=== PATIENT | male | born 1940 | race Caucasian/White ===

== ENCOUNTER 2016-08-08 15:03 | Emergency (ER) | payer OTHER, BC ==
[~2016-08-08 15:03] MED LIST: ATEN50 PO; GLUCOPHXR PO; L20 PO; LEVOTHYROXIN100 MCG PO; LIPITOR20 PO
== END 2016-08-08 17:00 | disposition home or self-care (01) ==
LOC: ER 15:03
DX: S19.9XXA Unspecified injury of neck, initial encounter (principal); I10 Essential (primary) hypertension; E11.9 Type 2 diabetes mellitus without complications; Z88.2 Allergy status to sulfonamides; V29.20XA Unspecified motorcycle rider injured in collision with unspecified motor vehicles in nontraffic accident, initial encounter
CPT/HCPCS: 72125; 99284